=== PATIENT | female | born 1935 | race Caucasian/White ===

== ENCOUNTER 2018-12-31 14:48 | Inpatient (IN) | payer MEDICARE, OTHER ==
[~2018-12-31] VITALS: Ht 165.1 cm; Wt 59.0 kg
[~2018-12-31 14:48] MED LIST: AMBIEN5 MG PO; ELIQUIS2.5 MG PO; LIPITOR20 MG PO; MS CONTIN15 MG PO; PERCOCET 7.5/321 TAB PO; PROTONIX40 MG PO; ROXICODONE15 MG PO; STOOL SOFTENER100 M1 PO; TRANDATE200 MG PO; ULTRAM50 MG PO
[2018-12-31] MEDS ORDERED: XARELTO20 MG PO (15:44)
[2018-12-31] MEDS ORDERED: LISINOPRIL-HCT1 EAC4 PO (15:50)
[2018-12-31] MEDS ORDERED: BETAPACE 80 MG80 MG PO (15:54)
[2018-12-31 15:59] VITALS: BP 131/57
[2018-12-31 18:02] LABS: BASOPHILS 0.3 % (0-2); EOSINOPHILS 1.1 % (0-7); HEMATOCRIT 35.1 % (36.0-48.0); HEMOGLOBIN 12.4 g/dL (12-16); IMMATURE GRANULOCYTES 0.2 % (0-5); LYMPHOCYTES 17.2 % (15-50); MCH 34.2 pg (26.0-34.0); MCHC 35.3 g/dL (31.0-37.0); MCV 96.7 fL (80.0-100.0); MEAN PLATELET VOLUME 10.3 fL (7.4-10.4); MONOCYTES 11.5 % (2-11); NEUTROPHILS 69.7 % (40-80); RBC 3.63 10x6/uL (4.00-5.40); RDW 12.9 % (11.5-14.5); WBC 6.4 10x3/uL (4.8-10.8)
[2018-12-31 18:04] LABS: INR 0.94 (0.85-1.17); PROTIME 12.1 SECONDS (11.6-15.0)
[2018-12-31 18:10] LABS: PLATELET COUNT 195 10x3/uL (130-400)
[2018-12-31 18:46] VITALS: BP 131/47
[2018-12-31 18:55] LABS: ALKALINE PHOSPHATASE 91 U/L (46-116); ALT (SGPT) 24 U/L (10-68); AMYLASE - SERUM 28 U/L (25-115); BILIRUBIN - TOTAL 0.41 mg/dL (0.2-1.3); CALC OSMOLALITY 282 mosm/kg (275-300); CALCIUM 8.6 mg/dL (8.5-10.1); CHLORIDE - SERUM 103 mmol/L (98-107); CREATININE - SERUM 0.7 mg/dL (0.6-1.3); LIPASE 125 U/L (73-393); PROTEIN - SERUM 6.4 g/dL (6.4-8.2); SODIUM 140 mmol/L (136-145); UREA NITROGEN 28 mg/dL (7-18); eGFR NON AFRICAN AMERICAN 85 mL/min (90-120)
[2018-12-31 19:10] LABS: GLUCOSE 62 mg/dL (74-106)
--- NOTE | 2018-12-31 20:40 | NUR ---
LYING IN BED. ALERT AND ORIENTED X4. DENIES N/V. PEG TUBE TO ABD IS CLAMPED. STATES, "I CAN DRINK FLUIDS WITHOUT GETTING CHOKED." DENIES PAIN. D5NS @ 60 MLHR TO LT CW MEDIPORT. AMBULATORY. NO DISTRESS. CL IN REACH.
[2018-12-31 22:19] VITALS: BP 151/67
[2019-01-01] VITALS (10 sets, daily range): BP systolic 63–139; BP diastolic 41–88; Ht 165.1 cm; Wt 59.0 kg
--- NOTE | 2019-01-01 20:00 | NUR ---
EYES CLOSED RESP UNLABORED IV INFUSING WITHOUT DIFFICULTY, DAUGHTER AT BEDSIDE
--- NOTE | 2019-01-01 21:15 | NUR ---
ALERT REQUESTING SOMETHING FOR SLEEP, STATES TAKES AMBIEN AT HOME, INSTRUCTED THE DR HAS TO ORDER HOME MEDICATIONS BEFORE WE CAN GIVE THEM AND AMBIEN AND OTHERS WERE NOT REORDERED, WILL PASS IT ALONG IN AM TO SEE IF THEY WILL ORDER HOME MEDS, SEE SHIFT ASSESSMENT CALL LIGHT IN REACH, PHENERGAN GIVEN PER REQUEST FOR NAUSEA
[2019-01-02 05:38] VITALS: BP 116/57
--- NOTE | 2019-01-02 07:53 | NUR ---
AWAKE AND ALERT. ORIENTED X3. FAMILY AT BEDSIDE. LUNGS ARE CLEAR BILATERALLY, NO COUGH NOTED. SKIN IS INTACT WITHOUT REDNESS. LEFT PORT PATENT WTIHOUT REDNESS AT INSERTION SITE. PEG PATENT WITHOUT REDNESS AT INSERTION SITE. DENIES NEEDS.
[2019-01-02 08:28] VITALS: BP 133/63
--- NOTE | 2019-01-02 09:51 | NUR ---
Nutrition follow-up/consult: Visited with pt re: TF regimen. Pt reports bolus feedings at home; however, pt has been unable to tolerate them and has been losing wt. Pt reports ~ 40# weight loss since becoming sick. RDN spoke with Dr. Hamilton who requested 1/2 can Jevity 1.2 elana q 2 hours. Unless TF is given q 24 hours this regimen will not meet estimated energy needs. Dr Lundberg recommended nocturnal continuous TF along with small volume bolus feeds and that is the regimen RDN provided. Pt to receive 1/2 carton Jevity 1.2 elana @ 0800, 1000, 1200, 1500, 1700, 1900 with 40 ml H2O flush before/after and Jevity 1.2 will start @ 2000 @ 60 ml/hr and end at 0700 with 30 ml H2O flush/hr. HOB > 30 degrees and upright for all feeds. This regimen will allow the pt to get stronger and hopefully pt will be able to handle larger volume of feeds and night TF will be able to end. Thank you for the consult RDN following.
--- NOTE | 2019-01-02 10:00 | NUR ---
BOLUS TF 120 CC WITHOUT DIFFICUTLY. DENIES NEEDS.
[2019-01-02 12:42] VITALS: BP 114/44
[2019-01-02 16:06] VITALS: BP 124/50
--- NOTE | 2019-01-02 16:30 | NUR ---
REQUESTED AND GIVEN ATIVAN PO FOR C/O AGITATION. WILL MONITOR.
--- NOTE | 2019-01-02 18:30 | NUR ---
ATE MORE OF FL SUPPER. STATED IT HAD A BETTER TASTE. WILL CONTINUE TO MONITOR. DENIES NEEDS.
[2019-01-02 20:07] VITALS: BP 131/68
--- NOTE | 2019-01-02 22:00 | NUR ---
A&O X 4. DENIES PAIN. BOWEL SOUNDS ACTIVE.PEG TUBE TO ABDOMEN, ASPIRATED 30 ML RESIDUAL AND AUSCULTATED FOR PLACEMENT. DENIES NEEDS AT THIS TIME.
[2019-01-03 04:00] VITALS: BP 133/59
--- NOTE | 2019-01-03 06:32 | NUR ---
I have reviewed this patient and I concur with the Shift Assessment completed by the Licensed Practical Nurse today this shift.
[2019-01-03 10:25] VITALS: BP 136/68
[2019-01-03 13:14] VITALS: BP 174/66
--- NOTE | 2019-01-03 13:34 | NUR ---
PT ALERT X 4. BREATH SOUNDS CLEAR BILAT. PORT TO LEFT CHEST, PATENT, DRESSING CDI. TRACE EDEMA TO BLE. PT REPORTING NO PAIN AT THIS TIME. PEG TUBE IN PLACE, PT REQUESTING TO DO OWN Q2 FEEDINGS. BED LOW, CALL LIGHT IN REACH. NO OTHER NEEDS AT THIS TIME.
[2019-01-03 17:32] VITALS: BP 140/63
--- NOTE | 2019-01-03 19:38 | NUR ---
PT ALERT AND ORIENTED WHEN ENTERING THE ROOM. PATIENT IN SUPINE POSITION. STATES "I HAVE NO PAIN BUT I AM TRYING TO GET OVER THIS NAUSEA" PATIENT RECEIVED ZOFRAN AT 5:30 ON PRIOR SHIFT. WILL REASSESS NAUSEA CLOSER TO TIME FOR NEXT ADMINISTRATION. DISCUSSED CONTINUOUS FEEDINGS THIS EVENING WITH PATIENT. VERBALIZES UNDERSTANDING AND DENIES QUESTIONS AT THIS TIME. HAS CALL LIGHT IN REACH. DENIES FURTHER NEEDS. DENIES BATH OR SHOWER FOR THIS EVENING AT THIS TIME. PEG SITE IS CLEAN WITH SOME REDNESS AROUND INSERTION SITE. PEG DRESSING AROUND TUBE. CPOC.
--- NOTE | 2019-01-03 20:04 | NUR ---
TUBE FEEDING INITIATED. HOB AT 30 DEGREE ANGLE.
--- NOTE | 2019-01-03 20:15 | NUR ---
PT STATES "IM NOT NAUSEATED ANYMORE." DENIES ZOFRAN AT THIS TIME.
[2019-01-03 20:55] VITALS: BP 138/61
[2019-01-04 01:14] VITALS: BP 116/51
--- NOTE | 2019-01-04 03:29 | NUR ---
I have reviewed this patient and I concur with the Shift Assessment completed by the Licensed Practical Nurse today this shift.
[2019-01-04 05:16] VITALS: BP 145/63
[2019-01-04 07:04] LABS: HEMATOCRIT 30.7 % (36.0-48.0); HEMOGLOBIN 10.7 g/dL (12-16); MCH 33.5 pg (26.0-34.0); MCHC 34.9 g/dL (31.0-37.0); MCV 96.2 fL (80.0-100.0); MEAN PLATELET VOLUME 10.6 fL (7.4-10.4); PLATELET COUNT 179 10x3/uL (130-400); RBC 3.19 10x6/uL (4.00-5.40); RDW 12.7 % (11.5-14.5)
[2019-01-04 07:19] LABS: ALBUMIN 2.5 g/dL (3.4-5.0); ALKALINE PHOSPHATASE 80 U/L (46-116); ALT (SGPT) 27 U/L (10-68); BILIRUBIN - TOTAL 0.25 mg/dL (0.2-1.3); CALC OSMOLALITY 281 mosm/kg (275-300); CALCIUM 8.3 mg/dL (8.5-10.1); CARBON DIOXIDE 28.7 mmol/L (21.0-32.0); CHLORIDE - SERUM 107 mmol/L (98-107); CREATININE - SERUM 0.6 mg/dL (0.6-1.3); POTASSIUM - SERUM 3.7 mmol/L (3.5-5.1); PROTEIN - SERUM 5.8 g/dL (6.4-8.2); SODIUM 142 mmol/L (136-145); UREA NITROGEN 11 mg/dL (7-18); eGFR NON AFRICAN AMERICAN > 90 mL/min (90-120)
[2019-01-04 07:22] LABS: GLUCOSE 97 mg/dL (74-106)
[2019-01-04 08:16] VITALS: BP 143/60
--- NOTE | 2019-01-04 09:14 | NUR ---
PT ALERT X 4. BREATH SOUNDS CLEAR BILAT. PORT TO LEFT CHEST, PATENT, DRESSING CDI. BRUISE TO LEFT WRIST. PT REPORTING SOME NAUSEA, MEDICATED PER ORDERS, WILL MONITOR. TRACE EDEMA TO BLE. BED LOW, CALL LIGHT IN REACH. NO OTHER NEEDS AT THIS TIME.
[2019-01-04 11:02] LABS: EOSINOPHILS 4 % (0-7); LYMPHOCYTES 28 % (15-50); MONOCYTES 10 % (2-11); NEUTROPHILS 58 % (40-80); PLATELET ESTIMATE NORMAL
[2019-01-04 12:49] VITALS: BP 144/54
[2019-01-04 16:41] VITALS: BP 159/74
--- NOTE | 2019-01-04 19:00 | NUR ---
REPORT RECEIVED AND CARE OF PT ASSUMED. PT LYING IN LOW LIZARRAGA'S POSITION WATCHING TV. LEFT PORT PATENT WITH D5NS INFUSING AT 60 ML/HR. PEG TUBE CLAMPED AT THIS TIME.
--- NOTE | 2019-01-04 19:20 | NUR ---
STARTED NIGHT TIME FEEDING AT 60 ML/HR PER ORDER. RESIDUAL AT 20 ML.
[2019-01-04 20:00] VITALS: BP 162/69
--- NOTE | 2019-01-04 20:49 | NUR ---
HS MEDICATIONS GIVEN TO INCLUDE AMBIEN 5 MG PO PER REQUEST. WILL CONTINUE TO MONITOR FOR NEEDS.
[2019-01-05] VITALS: BP 126/50
[2019-01-05 04:00] VITALS: BP 130/49
--- NOTE | 2019-01-05 06:00 | NUR ---
STOPPED TUBE FEEDING AND FLUSHED AND CLAMPED TUBE.
[2019-01-05 08:20] VITALS: BP 138/55
--- NOTE | 2019-01-05 09:09 | NUR ---
PT ALERT X 4. BREATH SOUNDS CLEAR BILAT. PORT TO LEFT CHEST, PATENT, DRESSING CDI. PT REPORTING IMPROVEMENT IN NAUSEA. PEG TUBE IN PLACE, PT CONTROLLING Q2H FEEDS. TRACE EDEMA TO BLE. BED LOW, CALL LIGHT IN REACH. NO OTHER NEEDS AT THIS TIME.
[2019-01-05] MEDS ORDERED: REGLAN10 MG PO (11:12)
--- NOTE | 2019-01-05 11:28 | MORECARE ---
CASE MANAGEMENT DISCHARGE SUMMARY PATIENT: SULEMA GALICIA UNIT: [id number] ADM DATE: 12/31/18 AGE: 83 : 35 SEX: F ROOM/BED: D.2204 AUTHOR: CHANDNI FELIZ PHYSICIAN: REFERRING PHYSICIAN: EL HALL MD DATE OF SERVICE: 01/05/19 Discharge Plan Patient Name: SULEMA GALICIA Facility: [facility]:[place] : 1935 Planned Disposition: Shelter Facility Anticipated Discharge Date: Discharge Date: Expected LOS: Initial Reviewer: [email or web address] Initial Review Date: 12/31/2018 Generated: 01/05/19 12:28 pm DCPIA - Discharge Planning Initial Assessment Updated by [email or web address]: Alicja Singer on 01/05/19 11:25 am * Is the patient Alert and Oriented? Yes * How many steps to enter\exit or inside your home? * PCP DR YUN * Pharmacy [facility] * Preadmission Environment Home with Family * ADLs Independent * Equipment Enteral Feeding and Supplies * Other Equipment [facility] * List name and contact numbers for known caregivers / representatives who currently or will assist patient after discharge: STEPHANIE MERAZ [phone] * Verbal permission to speak to the caregivers and representatives has been obtained from the patient. N/A * Community resources currently utilized Infusion Services * Please name any agencies selected above. [facility] * Additional services required to return to the preadmission environment? Yes * Can the patient safely return to the preadmission environment? Yes * Has this patient been hospitalized within the prior 30 days at any hospital? No External Providers External Provider: [facility] Next Contact Date: Service Request Date: Service Type: Resolution: Reviewer: Comments: Patient Name: SULEMA GALICIA Page [phone] at 1128 All edits/amendments must be made on the electronic document DICTATION DATE: 01/05/19 1128 BROACHING MACHINE SET UP OPERATOR: EDWIN 01/05/19 1128 RPT#: [id number] DC DATE: STATUS: ADM IN [facility] [address] [place] [address] END OF REPORT
--- NOTE | 2019-01-05 11:38 | MORECARE ---
CASE MANAGEMENT DISCHARGE SUMMARY PATIENT: SULEMA GALICIA UNIT: [id number] ADM DATE: 12/31/18 AGE: 83 : 35 SEX: F ROOM/BED: D.2204 AUTHOR: TRINIDOC PHYSICIAN: REFERRING PHYSICIAN: EL HALL MD DATE OF SERVICE: 01/05/19 Discharge Plan Patient Name: SULEMA GALICIA Facility: [facility]:[place] : 1935 Planned Disposition: Snf Facility Anticipated Discharge Date: Discharge Date: Expected LOS: Initial Reviewer: [email or web address] Initial Review Date: 12/31/2018 Generated: 01/05/19 12:38 pm Comments DCP- Discharge Planning Updated by [email or web address]: Alicja Singer on 01/05/19 10:[address] Patient Name: SULEMA GALICIA Admission Status: Elective Accout number: [id number] Admission Date: 12-31-2018 : 1935 Admission Diagnosis:GASTROPARESIS Attending: EL HALL Current LOS: 5 Anticipated DC Date: Planned Disposition: Snf Facility Primary Insurance: MEDICARE A & B Discharge Planning Comments: CM met with patient to complete initial dc planning assessment. CM educated patient on the CM role and verbal consent given by patient to complete assessment. Patient lives at home with family where she is independent with her care. At discharge patient plans to go to [facility] for rehab and feels this is a safe discharge. CM discussed availability of home health, rehab services, and medical equipment. She stated that she gets her feeding supplies from [facility]. Her family, Stephanie will be driving her to [facility], the room she will be in is room 203. IMM served and explained and BRITTON with [facility] and [facility] has been signed. Patient denied known discharge needs at this time. CM will continue to follow and will assist as needed with dc plans/needs. Cook Morning: Alicja Singer DCPIA - Discharge Planning Initial Assessment Updated by [email or web address]: Alicja Singer on 01/05/19 11:25 am * Is the patient Alert and Oriented? Yes * How many steps to enter\exit or inside your home? * PCP DR YUN * Pharmacy [facility] * Preadmission Environment Home with Family * ADLs Independent * Equipment Enteral Feeding and Supplies * Other Equipment [facility] * List name and contact numbers for known caregivers / representatives who currently or will assist patient after discharge: STEPHANIE MERAZ [phone] * Verbal permission to speak to the caregivers and representatives has been obtained from the patient. N/A * Community resources currently utilized Infusion Services * Please name any agencies selected above. [facility] * Additional services required to return to the preadmission environment? Yes * Can the patient safely return to the preadmission environment? Yes * Has this patient been hospitalized within the prior 30 days at any hospital? No Coverage Notice Reviewer: [id number] Lexus Singer Notice Issued Date-Time: 01/05/2019 11:15 Notice Type: Patient Choice Letter Notice Delivered To: Patient Relationship to Patient: Lap Winding Machine Operator Name: Delivery Method: HAND - Hand Delivered Katerin Days: Prior Verbal Notification: Recipient Understood Notice: Yes Recipient Signature: Yes Med Rec Note Co-signed by Attending: Coverage Notice Comment: Reviewer: [email or web address] Singer Notice Issued Date-Time: 01/05/2019 11:15 Notice Type: IM Discharge Notice Notice Delivered To: Patient Relationship to Patient: Lap Winding Machine Operator Name: Delivery Method: HAND - Hand Delivered Katerin Days: Prior Verbal Notification: Recipient Understood Notice: Yes Recipient Signature: Yes Med Rec Note Co-signed by Attending: Coverage Notice Comment: Last DP export: 01/05/19 10:28 a Patient Name: SULEMA GALICIA Page [id number] at 1138 All edits/amendments must be made on the electronic document DICTATION DATE: 01/05/19 1138 SUPERVISOR DAIRY SANITATION: EDWIN 01/05/19 1138 RPT#: [id number] DC DATE: STATUS: ADM IN [facility] [address] [place] [address] END OF REPORT
--- NOTE | 2019-01-05 12:53 | NUR ---
DISCHARGE PAPERWORK SIGNED, ALL QUESTIONS ANSWERED. PORT TO LEFT CHEST DEACCESSED. REPORT CALLED TO [facility]', ALL QUESTIONS ANSWERED, RETURN NUMBER GIVEN. ESCORTED OUT BY WHEELCHAIR.
--- NOTE | 2019-01-05 14:17 | MORECARE ---
CASE MANAGEMENT DISCHARGE SUMMARY PATIENT: SULEMA GALICIA UNIT: [id number] ADM DATE: 12/31/18 AGE: 83 : 35 SEX: F ROOM/BED: D.2204 AUTHOR: TRINIDOC PHYSICIAN: REFERRING PHYSICIAN: EL HALL MD DATE OF SERVICE: 01/05/19 Discharge Plan Patient Name: SULEMA GALICIA Facility: [facility]:[place] : 1935 Planned Disposition: Halfway Facility Anticipated Discharge Date: Discharge Date: 01/05/2019 Expected LOS: Initial Reviewer: [email or web address] Initial Review Date: 12/31/2018 Generated: 01/05/19 3:16 pm Comments DCP- Discharge Planning Updated by [email or web address]: Alicja Singer on 01/05/19 10:[address] Patient Name: SULEMA GALICIA Admission Status: Elective Accout number: [id number] Admission Date: 12-31-2018 : 1935 Admission Diagnosis:GASTROPARESIS Attending: EL HALL Current LOS: 5 Anticipated DC Date: Planned Disposition: Halfway Facility Primary Insurance: MEDICARE A & B Discharge Planning Comments: CM met with patient to complete initial dc planning assessment. CM educated patient on the CM role and verbal consent given by patient to complete assessment. Patient lives at home with family where she is independent with her care. At discharge patient plans to go to [facility] for rehab and feels this is a safe discharge. CM discussed availability of home health, rehab services, and medical equipment. She stated that she gets her feeding supplies from [employer]. Her family, Stephanie will be driving her to [facility], the room she will be in is room 203. IMM served and explained and BRITTON with [employer] and [facility] has been signed. Patient denied known discharge needs at this time. CM will continue to follow and will assist as needed with dc plans/needs. Foreclosure Field Inspector: Alicja Singer DCPIA - Discharge Planning Initial Assessment Updated by [email or web address]: Alicja Singer on 01/05/19 11:25 am * Is the patient Alert and Oriented? Yes * How many steps to enter\exit or inside your home? * PCP DR YUN * Pharmacy [facility] * Preadmission Environment Home with Family * ADLs Independent * Equipment Enteral Feeding and Supplies * Other Equipment [facility] * List name and contact numbers for known caregivers / representatives who currently or will assist patient after discharge: STEPHANIE MERAZ [phone] * Verbal permission to speak to the caregivers and representatives has been obtained from the patient. N/A * Community resources currently utilized Infusion Services * Please name any agencies selected above. [facility] * Additional services required to return to the preadmission environment? Yes * Can the patient safely return to the preadmission environment? Yes * Has this patient been hospitalized within the prior 30 days at any hospital? No Coverage Notice Reviewer: [email or web address] Lexus Singer Notice Issued Date-Time: 01/05/2019 11:15 Notice Type: Patient Choice Letter Notice Delivered To: Patient Relationship to Patient: Food Service Hotel Runner Name: Delivery Method: HAND - Hand Delivered Katerin Days: Prior Verbal Notification: Recipient Understood Notice: Yes Recipient Signature: Yes Med Rec Note Co-signed by Attending: Coverage Notice Comment: Reviewer: [email or web address] Singer Notice Issued Date-Time: 01/05/2019 11:15 Notice Type: IM Discharge Notice Notice Delivered To: Patient Relationship to Patient: Food Service Hotel Runner Name: Delivery Method: HAND - Hand Delivered Katerin Days: Prior Verbal Notification: Recipient Understood Notice: Yes Recipient Signature: Yes Med Rec Note Co-signed by Attending: Coverage Notice Comment: Last DP export: 01/05/19 10:38 a Patient Name: SULEMA GALICIA Page [phone] at 1417 All edits/amendments must be made on the electronic document DICTATION DATE: 01/05/19 1416 FOOD SERVICE HOTEL RUNNER: EDWIN 01/05/19 1416 RPT#: [id number] DC DATE:01/05/19 STATUS: DIS IN [facility] [address] [place] [address] END OF REPORT
== END 2019-01-05 12:55 | DRG 392 ==
LOC: D.MS 14:48
PROVIDERS: Internal Medicine Gastroenterology; ADMIT Internal Medicine Hematology & Oncology; ATTEND Internal Medicine Hematology & Oncology
PROC: 0DB68ZX Excision of Stomach, Via Natural or Artificial Opening Endoscopic, Diagnostic (ICD-10-PCS; principal; 2019-01-01 15:00)
DX: K31.84 Gastroparesis (principal); E46 Unspecified protein-calorie malnutrition; R11.2 Nausea with vomiting, unspecified; Z68.20 Body mass index [BMI] 20.0-20.9, adult; I10 Essential (primary) hypertension; I25.10 Atherosclerotic heart disease of native coronary artery without angina pectoris; K29.70 Gastritis, unspecified, without bleeding; K44.9 Diaphragmatic hernia without obstruction or gangrene